=== PATIENT | female | born 1930 | race Caucasian/White ===

== ENCOUNTER 2016-11-21 16:47 | Emergency (ER) | payer MEDICARE, OTHER ==
[2016-11-21 11:42] LABS: WBC (NOT ORDERED) (RFLEX) 0 (0-5)
[2016-11-21 11:45] LABS: BASOPHILS 0.3 %; BASOPHILS ABSOLUTE 0.01 10/3/uL (0.0-0.16); EOSINOPHILS 4.5 %; EOSINOPHILS ABSOLUTE 0.14 10/3/uL (0.0-0.53); HEMATOCRIT 39.6 % (36.0-48.0); HEMOGLOBIN 13.4 g/dL (12.0-16.0); IMMATURE GRANULOCYTES 0.3 %; IMMATURE GRANULOCYTES ABSOLUTE 0.01 10/3/uL (0.0-0.11); LYMPHOCYTES 18.3 %; LYMPHOCYTES ABSOLUTE 0.57 10/3/uL (0.67-4.30); MEAN CORPUS HGB CONC 33.8 g/dL (32.0-36.0); MEAN CORPUSCULAR HEMOGLOB 29.7 pg (26.0-34.0); MEAN PLATELET VOLUME 9.4 fL (9.2-13.0); MONOCYTES 14.1 %; MONOCYTES ABSOLUTE 0.44 10/3/uL (0.21-1.20); NEUTROPHILS 62.5 %; NEUTROPHILS ABSOLUTE 1.94 10/3/uL (2.02-8.40); PLATELET COUNT 200 10/3/uL (150-400); RBC DISTRIBUTION WIDTH 14.9 % (12.0-16.0); RED CELL COUNT 4.51 10/6/uL (4.0-5.6); WHITE BLOOD CELLS 3.1 10/3/uL (4.5-10.5)
[2016-11-21 11:46] LABS: MEAN CORPUSCULAR VOLUME 87.8 fL (80-100)
[2016-11-21 11:47] LABS: MANUAL DIFF NO %
[2016-11-21 11:53] LABS: ASCORBIC ACID (UR NOT ORDER) NEG (NEG); BILIRUBIN, URINE NEGATIVE (NEG); ER URINALYSIS TAT 0 Hrs 13 Mins; KETONE, URINE NEGATIVE (NEG); LEUKOCYTE ESTERASE(NOT OR NEG (NEG); NITRITE (URINE) NEG (NEG)
[2016-11-21 12:00] LABS: A/G RATIO 0.9 (0.7-1.9); ALBUMIN 3.6 G/DL (3.5-5.0); ALKALINE PHOSPHATASE 77 U/L (45-117); BUN (BLOOD UREA NITROGEN) 26 MG/DL (6-23); CALCIUM, SERUM 9.7 MG/DL (8.5-10.4); CHLORIDE, SERUM 103 MMOL/L (96-112); CO2 (CARBON DIOXIDE) 30 MMOL/L (24-34); CREATININE 0.96 MG/DL (0.55-1.02); GFR AFRICAN AMERICAN 63 ML/MIN (>=60); GFR NON AFRICAN AMERICAN 54 ML/MIN (>=60); GLOBULIN 3.9 G/DL (2.5-4.1); GLUCOSE, SERUM 138 MG/DL (60-99); POTASSIUM, SERUM 4.1 MMOL/L (3.5-5.3); SGOT(AST) 16 U/L (5-40); SGPT(ALT) 17 U/L (5-65); SODIUM, SERUM 142 MMOL/L (135-148); TOTAL PROTEIN 7.5 G/DL (6.0-8.5)
[~2016-11-21 16:47] MED LIST: ADVIL PO; AMIT75 PO; ANADS PO; ATV.5 PO; CEFT5 PO; DSS PO; LEXAPRO10 PO; LOP25 PO; MAX25 PO; NO HOME MEDS; PCET PO; PR25 PO; PRILOSEC40 MG PO; PRIN20 PO; PROTONIX PO; SUCR PO; T PO
[2016-11-21 17:18] LABS: TROPONIN I 0.02 NG/ML (<0.05)
== END 2016-11-21 18:50 | disposition home or self-care (01) ==
LOC: ER 16:47
PROVIDERS: Emergency Medicine
DX: K29.70 Gastritis, unspecified, without bleeding (principal); I10 Essential (primary) hypertension; K21.9 Gastro-esophageal reflux disease without esophagitis; F32.9 Major depressive disorder, single episode, unspecified; Z79.899 Other long term (current) drug therapy
CPT/HCPCS: 80053; 81001; 83690; 84484; 85025; 93005; 99284; A9270-GY